=== PATIENT | female | born 1940 | race Caucasian/White ===

== ENCOUNTER 2021-08-05 07:17 | Inpatient (IN) | payer MEDICARE, SELFPAY ==
[2021-08-05] VITALS (7 sets, daily range): BP systolic 147–177; BP diastolic 64–89; PULSE 79–87; RESP 17–24; TEMP 36.9–38.1; O2SAT 94–98; BMI 30.2
--- NOTE | ~2021-08-05 | XR_ITS ---
EXAMINATION: XR CHEST CLINICAL INFORMATION: Stroke COMPARISON: None TECHNIQUE: Frontal view of the chest was obtained. FINDINGS: The heart does not appear enlarged. The thoracic aorta is slightly calcified. Hilar and mediastinal contours are otherwise unremarkable. There is slight elevation of the right hemidiaphragm. The lungs are clear. There is no pleural effusion or pneumothorax. There are degenerative changes of the spine and right shoulder. XR/XR chest 1V IMPRESSION: Slight elevation of the right hemidiaphragm otherwise unremarkable exam.
--- NOTE | ~2021-08-05 | CT_ITS ---
EXAMINATION: CT HEAD WITHOUT CONTRAST (STROKE PROTOCOL) CLINICAL INFORMATION: Stroke protocol. Right-sided weakness and facial droop COMPARISON: None TECHNIQUE: Contiguous axial imaging was performed from the skull base to vertex without intravenous administration of contrast. This CT examination was performed using dose optimization techniques as appropriate, variously including the following: *Automated exposure control *Adjustment of mA and/or kV according to patient size (this includes techniques or standardized protocols for targeted exams where dose is matched to indication/reason for exam; i.e. extremities or head) *Use of iterative reconstruction technique DLP: 648 mGy-cm FINDINGS: There is no intracranial hemorrhage, hematoma, or extra-axial fluid collection. The ventricles are normal in size. There is no hydrocephalus, edema, or mass effect Area of decreased attenuation within the left sylvian region. This is strictly speaking of indeterminate chronicity and needs correlation with baseline studies and acute symptoms. Old appearing right cerebellar PICA infarct is noted. The calvarium appears intact. There is no pneumocephalus or orbital emphysema. The visualized sinuses and middle ears and mastoid air cells show no significant mucosal thickening. Postsurgical changes on the right partially imaged at the level the maxillary sinus. There are no air-fluid levels. CT/CT head for stroke IMPRESSION: Left MCA sylvian region ischemic changes as above. Difficult to exclude acute on chronic ischemia changes. No hemorrhage. This critical result was discussed with Dr. Nevarez at 7:30 AM on 08/05/2021. It was ascertained that the content and urgency of the report was understood at the time of direct communication.
--- NOTE | ~2021-08-05 | XR_ITS ---
EXAMINATION: XR PELVIS CLINICAL INFORMATION: Fall. Evaluate for hip fracture COMPARISON: None TECHNIQUE: AP view of the pelvis. FINDINGS: There is normal symmetry of bilateral hip joints and SI joints. No acute fracture or dislocation seen involving the pelvic bones or the joints. The soft tissues are normal. Moderate degenerative changes L4-L5 and L5/S1 disc levels with moderate spondylosis noted. XR/XR pelvis 1-2V IMPRESSION: No visible acute fracture or dislocation in pelvis.
--- NOTE | 2021-08-05 07:19 | ECG_ITS ---
Test Reason : stroke Blood Pressure : / mmHG Vent. Rate : 078 BPM Atrial Rate : 078 BPM P-R Int : 162 ms QRS Dur : 090 ms QT Int : 400 ms P-R-T Axes : 074 -36 022 degrees QTc Int : 456 ms Normal sinus rhythm Left axis deviation Minimal voltage criteria for LVH, may be normal variant ( [place] product ) Nonspecific ST abnormality Abnormal ECG No previous ECGs available Referred By: Megan Nevarez Electronically Signed By:SANDRA GUNTER
--- NOTE | 2021-08-05 07:24 | ED_ITS ---
HPI - Neuro Symptoms/Deficit General Chief Complaint: Stroke Stated Complaint: stroke alert Time Seen by Provider: 08/05/21 07:18 Source: EMS Mode of arrival: EMS Limitations: altered mental status History of Present Illness HPI Narrative: 81 years old female came in by EMS as a stroke alert. reportedly from EMS/daughter patient lives home alone mostly independent and functional last was seen by her daughter was 2 days ago, daughter checked turned on her mom today found her on the floor for unknown time, patient has been incoherent, with remarkable expressive aphasia and pronounced right facial droop and right-sided body weakness, reportedly patient had 2 strokes history in the past left her with mild right-sided weakness and mild right facial droop but today's symptoms is more severe than her baseline. Patient has never been in our hospital so old record is not available, daughterIs on her way to the hospital but not physically present yet, unknown if patient receiving on anticoagulation therapy are not. Related Data Allergies Allergy/AdvReac Type Severity Reaction Status Date / Time No Known Allergies Allergy Verified 08/05/21 07:18 Review of Systems Review of Systems: Yes Unobtainable due to mental condition [facility] Social History Social History Alcohol intake: never Patient Tobacco Use Status: Never used Tobacco Use of substances other than those prescribed or required for medical reasons: No Advance Directives: Yes Advance Directives Information Provided: Yes Advance Directives on File: No Physical Exam 2 Vital Signs: Vital Signs: Last Vital Signs Temp 100.5 F H 08/05/21 07:29 Pulse 80 08/05/21 08:42 Resp 24 H 08/05/21 08:42 BP 151/71 H 08/05/21 08:42 Pulse Ox 98 08/05/21 08:42 BMI result Body Mass Index 30.2 Vital signs have been reviewed as appeared to be correct. Blood pressure normal. Heart rate normal. Respiration rate normal. Temperature normal. Oxygen saturation normal. Appearance: Alert. . No acute distress. Head: Normal external exam. Normocephalic. Atraumatic. No Grimm signs noted. No raccoon eyes noted Eyes: PERRLA. EOMI. Conjunctiva and sclera normal. Eyelids normal. ENT: TM's Normal. Pharynx normal. Uvula midline. Moist mucous membranes. No trismus noted. No drooling noted. No muffled voice noted. Neck: Normal inspection. Neck supple. FROM. No adenopathy. Thyroid Normal. No meningeal signs. No neck mass noted. CVS: Normal heart rate and rhythm. Heart sound normal. No murmurs noted. Pulses normal throughout. Respiratory: No respiratory distress. Painless inspiration. Breath sounds normal. No wheezes/rales/rhonchi noted. Chest nontender. No accessory muscle usage noted or decreased air movement noted. Abdomen: Soft and nontender. Bowel sounds normal in all 4 quadrants. No distention noted. No organomegaly noted. No visible injury noted. Back: No CVA tenderness. Full range of motion noted. Skin: Skin warm and dry. Normal skin color. Normal skin turgor. No rashes/lesions/lacerations noted. Extremities: No lower extremity edema. Extremities exhibit normal range of motion. Extremities nontender. Neuro: Alert Cranial nerve exam: right facial right-sided weakness, patient with chronic shoulder orthopedic issue cannot raise her left upper extremities. Course Course Course Narrative: Assessment and plan. 1. Stroke patient out of the window for thrombolysis treatment. 2. Non STEMI, case discussed with Dr. Smith recommended to get an echo. 3. Mild rhabdomyolysis mild hydration. 4. Simple UTI will administer ceftriaxone. Admit MDM - Neuro Symptoms/Deficit Lab Data Attestation: I reviewed the patient's lab results. Result diagrams: 08/05/21 08:27 08/05/21 08:27 Labs: Lab Results 08/05/21 08/05/21 08/05/21 Range/Units 07:31 07:32 08:27 WBC 8.2 (4.8-10.8) X10*3/uL RBC 4.49 (4.20-5.50) X10*6/uL Hgb 13.4 (12.0-16.0) g/dl Hct 41.5 (37.0-47.0) % MCV 92.4 (80.0-98.0) fL MCH 29.8 (27.0-33.0) pg MCHC 32.3 (31.0-35.0) g/dl RDW 14.9 (11.0-16.0) % Plt Count 90 L (160-400) X10*3/uL MPV 10.3 (9.4-12.3) fL Immature Gran % (Auto) 0.6 H (0.0-0.4) % Neut % (Auto) 85.4 H (45-73) % Lymph % (Auto) 5.1 L (20-40) % [place] % (Auto) 8.0 (2-11) % Eos % (Auto) 0.7 (0-4) % Baso % (Auto) 0.2 (0-2) % Lymph # (Auto) 0.4 L (1.2-4.9) X10*3/uL [place] # (Auto) 0.7 (0.1-1.2) X10*3/uL Eos # (Auto) 0.1 (0.0-0.4) X10*3/uL Baso # (Auto) 0.0 (0.0-0.2) X10*3/uL Abs Immat Gran (auto) 0.05 H (0.00-0.03) X10*3/uL Absolute Neuts (auto) 7.0 (2.0-8.3) x10*3/uL Absolute Nucleated RBC 0.000 (0.0-0.012) X10*3/uL Nucleated RBC % (auto) 0.0 (0.0-0.2) /100WBC PT (9.9-13.0) SEC Whole Blood PT 16.9 H (11.1-13.5) sec INR (0.9-1.1) Whole Blood INR 1.4 H (0.9-1.1) APTT (24.1-38.0) SEC Sodium (135-145) mmol/L Potassium (3.3-5.1) mmol/L Chloride (96-108) mmol/L Carbon Dioxide (22-29) mmol/L Anion Gap (12-20) BUN (9-16) mg/dL Creatinine (0.5-1.4) mg/dL Estim Creat Clear Calc Estimated GFR POC Glucose 106 (60-115) mg/dL Random Glucose (60-115) mg/dL Lactic Acid (0.5-2.0) mmol/L Calcium (8.4-10.2) mg/dL Total Creatine Kinase (26-140) U/L Troponin I High Sens (<3.5-17.0) ng/L Urine Color Urine Appearance Urine pH (5.0-8.0) Ur Specific [place] (1.005-1.025) Urine Protein (NEG-TRACE) MG/DL Urine Glucose (UA) (NEG) MG/DL Urine Ketones (NEG) MG/DL Urine Blood (NEG) Urine Nitrite (NEG) Ur Leukocyte Esterase (NEG) Urine RBC (0) /HPF Urine WBC (0-4) /HPF Ur Squamous Epith Cells /LPF Urine Bacteria /LPF COVID-19 ([place]) (Negative) COVID-19 Clin Com 08/05/21 08/05/21 08/05/21 Range/Units 08:27 08:27 08:27 WBC (4.8-10.8) X10*3/uL RBC (4.20-5.50) X10*6/uL Hgb (12.0-16.0) g/dl Hct (37.0-47.0) % MCV (80.0-98.0) fL MCH (27.0-33.0) pg MCHC (31.0-35.0) g/dl RDW (11.0-16.0) % Plt Count (160-400) X10*3/uL MPV (9.4-12.3) fL Immature Gran % (Auto) (0.0-0.4) % Neut % (Auto) (45-73) % Lymph % (Auto) (20-40) % [place] % (Auto) (2-11) % Eos % (Auto) (0-4) % Baso % (Auto) (0-2) % Lymph # (Auto) (1.2-4.9) X10*3/uL [place] # (Auto) (0.1-1.2) X10*3/uL Eos # (Auto) (0.0-0.4) X10*3/uL Baso # (Auto) (0.0-0.2) X10*3/uL Abs Immat Gran (auto) (0.00-0.03) X10*3/uL Absolute Neuts (auto) (2.0-8.3) x10*3/uL Absolute Nucleated RBC (0.0-0.012) X10*3/uL Nucleated RBC % (auto) (0.0-0.2) /100WBC PT 16.4 H (9.9-13.0) SEC Whole Blood PT (11.1-13.5) sec INR 1.4 H (0.9-1.1) Whole Blood INR (0.9-1.1) APTT 37.8 (24.1-38.0) SEC Sodium 146 H (135-145) mmol/L Potassium 4.1 (3.3-5.1) mmol/L Chloride 112 H (96-108) mmol/L Carbon Dioxide 20 L (22-29) mmol/L Anion Gap 18 (12-20) BUN 17 H (9-16) mg/dL Creatinine 0.77 (0.5-1.4) mg/dL Estim Creat Clear Calc 54.3 Estimated GFR > 60 POC Glucose (60-115) mg/dL Random Glucose 116 H (60-115) mg/dL Lactic Acid (0.5-2.0) mmol/L Calcium 9.3 (8.4-10.2) mg/dL Total Creatine Kinase 1216 H (26-140) U/L Troponin I High Sens 1176.0 H* (<3.5-17.0) ng/L Urine Color Urine Appearance Urine pH (5.0-8.0) Ur Specific [place] (1.005-1.025) Urine Protein (NEG-TRACE) MG/DL Urine Glucose (UA) (NEG) MG/DL Urine Ketones (NEG) MG/DL Urine Blood (NEG) Urine Nitrite (NEG) Ur Leukocyte Esterase (NEG) Urine RBC (0) /HPF Urine WBC (0-4) /HPF Ur Squamous Epith Cells /LPF Urine Bacteria /LPF COVID-19 ([place]) (Negative) COVID-19 Clin Com 08/05/21 08/05/21 08/05/21 Range/Units 08:27 08:27 09:14 WBC (4.8-10.8) X10*3/uL RBC (4.20-5.50) X10*6/uL Hgb (12.0-16.0) g/dl Hct (37.0-47.0) % MCV (80.0-98.0) fL MCH (27.0-33.0) pg MCHC (31.0-35.0) g/dl RDW (11.0-16.0) % Plt Count (160-400) X10*3/uL MPV (9.4-12.3) fL Immature Gran % (Auto) (0.0-0.4) % Neut % (Auto) (45-73) % Lymph % (Auto) (20-40) % [place] % (Auto) (2-11) % Eos % (Auto) (0-4) % Baso % (Auto) (0-2) % Lymph # (Auto) (1.2-4.9) X10*3/uL [place] # (Auto) (0.1-1.2) X10*3/uL Eos # (Auto) (0.0-0.4) X10*3/uL Baso # (Auto) (0.0-0.2) X10*3/uL Abs Immat Gran (auto) (0.00-0.03) X10*3/uL Absolute Neuts (auto) (2.0-8.3) x10*3/uL Absolute Nucleated RBC (0.0-0.012) X10*3/uL Nucleated RBC % (auto) (0.0-0.2) /100WBC PT (9.9-13.0) SEC Whole Blood PT (11.1-13.5) sec INR (0.9-1.1) Whole Blood INR (0.9-1.1) APTT (24.1-38.0) SEC Sodium (135-145) mmol/L Potassium (3.3-5.1) mmol/L Chloride (96-108) mmol/L Carbon Dioxide (22-29) mmol/L Anion Gap (12-20) BUN (9-16) mg/dL Creatinine (0.5-1.4) mg/dL Estim Creat Clear Calc Estimated GFR POC Glucose (60-115) mg/dL Random Glucose (60-115) mg/dL Lactic Acid 2.3 H* (0.5-2.0) mmol/L Calcium (8.4-10.2) mg/dL Total Creatine Kinase (26-140) U/L Troponin I High Sens (<3.5-17.0) ng/L Urine Color YELLOW Urine Appearance HAZY Urine pH 6.0 (5.0-8.0) Ur Specific [place] >= 1.030 H (1.005-1.025) Urine Protein 2+ H (NEG-TRACE) MG/DL Urine Glucose (UA) NEG (NEG) MG/DL Urine Ketones 15 (NEG) MG/DL Urine Blood 3+ H (NEG) Urine Nitrite POS H (NEG) Ur Leukocyte Esterase NEG (NEG) Urine RBC 0-2 (0) /HPF Urine WBC 15-29 H (0-4) /HPF Ur Squamous Epith Cells TRACE /LPF Urine Bacteria 4+ /LPF COVID-19 ([place]) Negative (Negative) COVID-19 Clin Com See Note Imaging Data Chest x-ray: Attestation: I personally reviewed and interpreted this imaging study as follows: Radiologist's impression: Slight elevation of the right hemidiaphragm otherwise unremarkable exam. ? CT scan - head: Attestation: I personally reviewed and interpreted this imaging study as follows: Radiologist's impression: Left MCA sylvian region ischemic changes as above. Difficult to exclude acute on chronic ischemia changes. No hemorrhage. ? ECG Data Attestation: I personally reviewed and interpreted this ECG as follows: Interpretation: normal sinus rhythm at 70 beats per minutes, left axis deviation, LVH, no ST-T changes. NIH Stroke Scale Internal: Initial- Upon Arrival Level of Consciousness: Alert Level of Consciousness Questions: Answers neither question correctly Level of Consciousness Commands: Performs neither task correctly Best Gaze: Normal Visual: No visual loss Facial Palsy: Minor paralyis Motor Arm (Right): No movement Motor Arm (Left): Drift ( patient was chronic left shoulder pain.) Motor Leg (Right): No movement Motor Leg (Left): No drift Limb Ataxia: Absent Sensory: Normal Best Language: Severe aphasia Dysarthia: Normal Extinction and Inattention: No abnormality Score: 16 Discharge Plan Discharge Clinical Impression: Cerebrovascular accident, Rhabdomyolysis, Non-ST elevation (NSTEMI) myocardial infarction, Acute UTI Patient Disposition: Admitted As Inpatient
[2021-08-05 07:39] LABS: Glucose, Whole Blood 106 mg/dL (60-115)
[2021-08-05 07:41] LABS: Prothrombin Time Whole Bld POC 16.9 sec (11.1-13.5); ~PT, ~INR - Anti Coag Clinic 1.4 (0.9-1.1)
[2021-08-05] MEDS: Acetaminophen Supp 650 MG SUPP.RECT PR (08:12)
[2021-08-05 08:33] LABS: MANUAL DIFF FLAG NO
[2021-08-05 08:35] LABS: Basophils Percent Auto 0.2 % (0-2); Eosinophils Absolute Auto 0.1 X10*3/uL (0.0-0.4); Eosinophils Percent Auto 0.7 % (0-4); Hematocrit 41.5 % (37.0-47.0); Hemoglobin 13.4 g/dl (12.0-16.0); Imm Gran Abs Auto 0.05 X10*3/uL (0.00-0.03); Imm Gran Pct Auto 0.6 % (0.0-0.4); Lymphocytes Absolute Auto 0.4 X10*3/uL (1.2-4.9); Lymphocytes Percent Auto 5.1 % (20-40); Mean Corpuscular HGB Conc 32.3 g/dl (31.0-35.0); Mean Corpuscular Hemoglobin 29.8 pg (27.0-33.0); Mean Corpuscular Volume 92.4 fL (80.0-98.0); Monocytes Absolute Auto 0.7 X10*3/uL (0.1-1.2); Neutrophils Percent Auto 85.4 % (45-73); Red Blood Count 4.49 X10*6/uL (4.20-5.50); Red Cell Distribution Width 14.9 % (11.0-16.0); White Blood Count 8.2 X10*3/uL (4.8-10.8)
[2021-08-05 08:39] LABS: INTERNATIONAL NORM RATIO 1.4 (0.9-1.1); Prothrombin Time 16.4 SEC (9.9-13.0)
[2021-08-05 08:42] LABS: Partial Thromboplastin Time 37.8 SEC (24.1-38.0)
[2021-08-05 08:46] LABS: Lactic Acid 2.3 mmol/L (0.5-2.0)
[2021-08-05 08:48] LABS: COVID-19 Test Negative (Negative); IDNOW Serial# 16C4AD1C
[2021-08-05 08:55] LABS: Mean Platelet Volume 10.3 fL (9.4-12.3); Platelet Count 90 X10*3/uL (160-400)
--- NOTE | 2021-08-05 09:00 | CA_ITS ---
Transthoracic Echocardiogram Patient (Last, First, Middle): Rosa Frank, Gender: Female Date of : 1940 Age: 81 Procedure Date: 08/05/2021 Procedure Type: Transthoracic Echocardiogram Location: ER Height: 157.48 cm Weight: 74.84 kg BSA: 1.76 m2 Heart Rate: bpm BP: 151 / 71 mmHg Music Director: NORA Referring MD: Megan Nevarez MD Symptoms: elevated troponin Study Quality: Fair ECG Rhythm: Sinus Conclusions: - The left ventricular systolic function is normal. The calculated ejection fraction is 64% by biplane method. - There is severe aortic valve stenosis. - There is moderate mitral annular calcification. - The inferior vena cava is dilated and collapses less than 50% with inspiration. Findings Left Ventricle Normal left ventricular cavity size. There is moderately increased left ventricular wall thickness. The left ventricular systolic function is normal. The calculated ejection fraction is 64% by biplane method. There is no evidence of regional wall motion abnormalities. E/E prime ratio is >15, consistent with elevated filling pressures. Evidence suggests grade I (mild) diastolic dysfunction. Right Ventricle Normal right ventricular cavity size and systolic function. Atria The left atrium is mildly dilated. The right atrium is normal in size. Aortic Valve There is moderate calcification of the aortic valve. There is severe aortic valve stenosis. The peak aortic velocity is 4.16 m/s with a calculated peak gradient of 69 mmHg. The mean gradient is 44 mmHg. The aortic valve area is 0.91 cm2. There is no aortic valve regurgitation. Dimensionless index 0.29. Stroke volume index 46ml. Mitral Valve There is moderate mitral annular calcification. There is trace mitral valve regurgitation. There is no mitral valve stenosis. Pulmonic Valve The pulmonic valve was not well visualized. Tricuspid Valve There is trace tricuspid valve regurgitation. The right ventricular systolic pressure is 35 mmHg. Top normal RVSP. Great Vessels The aortic annulus, sinuses of valsalva, and asc aorta are normal in size. Venous The inferior vena cava is dilated and collapses less than 50% with inspiration. Pericardium/Pleural There is no evidence of pericardial effusion. Prior Study Comparison No prior study available for comparison. Measurements 2D Linear Measurements IVSd: 1.36 0.6-0.9/0.6-1.0 cm LVIDd: 4.71 3.9-5.3/4.2-5.9 cm LVIDd Index: 2.68 2.4-3.2/2.2-3.1 cm/m2 LVIDs: 2.81 2.0-3.6 cm LVPWd: 1.29 0.7-1.1 cm LA Diam: 4.20 2.7-3.8/3.0-4.0 cm LAIDs Index: 2.39 1.5-2.3 cm/m2 LV Mass: 305.97 67-162/88-224 g LV Mass Index: 173.85 43-95/49-115 g/m2 LVOT Diam: 2.00 3.0+(-)1.3 cm 2D Systolic Function EF 4C: 58.70 >55% EF 2C: 68.80 >55% EF BiP: 63.80 >55% Mitral Valve MV Pk E: 0.91 MV PK A: 1.33 MV Decel Time: 201.00 E/A: 0.70 E'Lateral: 6.85 E'Medial: 5.33 E/E' Med: 17.00 E/E' Lat: 13.30 PHT: 59.00 MVA PHT: 3.73 Decel [place]: 4.52 Aortic Valve AoV Pk Cipriano: 4.16 AoV Mn Cipriano: 3.21 AoV VTI: 0.90 AoV Pk Grad: 69.00 Aov Mn Grad: 44.00 MAGALI Cont.VTI: 0.91 LVOT LVOT Pk Cipriano: 1.21 LVOT Mn Cipriano: 0.85 LVOT VTI: 0.26 LVOT Pk Grad: 6.00 LVOT Mn Grad: 3.00 LVOT Diam: 2.00 LVOT Area: 3.14 Diastolic Function MV Pk E: 0.91 MV Pk A: 1.33 E/A: 0.70 E'Medial: 5.33 E/E' Med: 17.00 E' Laterial: 6.85 E/E' Lat: 13.30 Right Ventricle TAPSE (mm): 30.00 TVS' Cipriano: 24.10 Tricuspid Valve TR Pk Cipriano: 2.25 TR Pk Grad: 20.00 RA Press: 15.00 RVSP: 35.00 Great Vessels Aorta Sinus of Valsalva: 3.27 2.0-3.[address] [place]: 2.38 1.7-3.4 cm Ao Asc: 3.40 2.1-3.4 cm Updated in Other Vendor System with Status of Final Vlad Smith MD electronically signed on 08/05/2021 11:51:07 AM with status of Final
[2021-08-05] MEDS: 0.9 % Sodium Chloride 1,000 ML 999 ML IV (09:02)
[2021-08-05] MEDS: cefTRIAXone sodium 1 GM in 0.9 % Sodium Chloride 50 ML IV (09:03)
[2021-08-05 09:09] LABS: Stroke Lab Use COMPLETE
[2021-08-05 09:23] LABS: Anion Gap 18 (12-20); Blood Urea Nitrogen 17 mg/dL (9-16); Calcium 9.3 mg/dL (8.4-10.2); Carbon Dioxide 20 mmol/L (22-29); Chloride 112 mmol/L (96-108); Creatinine Clr Calc Pharmacy 54.3; Estimated Glomerular Filt Rate > 60; Glucose Random 116 mg/dL (60-115); Potassium 4.1 mmol/L (3.3-5.1); Sodium 146 mmol/L (135-145)
[2021-08-05 09:29] LABS: Appearance Urine HAZY; Color Urine YELLOW; Glucose Urine UA NEG (NEG); Leukocyte Esterase Urine NEG (NEG); Nitrite Urine POS (NEG); Specific Gravity - Urine >= 1.030 (1.005-1.025); UACC Culture Trigger YES; Urine Blood 3+ (NEG); Urine Ketones 15 MG/DL (NEG); Urine Protein 2+ MG/DL (NEG-TRACE)
[2021-08-05 10:14] LABS: Bacteria Urine 4+ /LPF; RBC Urine 0-2 /HPF (0); Squamous Epithelial Cell Urine TRACE /LPF
[2021-08-05 10:30] LABS: Reflex Lactate? Lactic Acid Added
--- NOTE | 2021-08-05 11:28 | PHA.MEDREC ---
Pharmacy Consult ? Medication Reconciliation Pharmacy has completed the medication reconciliation. Spoke with patient's daugther to confirm medications. Levothyroxine dose has been adjust often, and reports they were recently down to 150 mcg. Metformin is only once a day. Jazmin Sequeira, PharmD
--- NOTE | 2021-08-05 11:54 | P.HPHOSP_ITS ---
History of Present Illness Date of Service: 08/05/21 Chief Complaint: found by family This is an 81 yo F with a PMH of DM, HTN, HLD, Hypothyroidism, Crohn's disease, Prior CVA x 2 who presents to the ED BIBA after her family found her on the ground on the day of admission. The patient currently is unable to provide a history due to her acute CVA, hence history is obtained from the patients [id number] (Meg) who is bedside. Meg reports that she saw her mother in law on Sunday at which point she was in her usual state of health. This AM when she arrival to check in on her (patient lives by herself) she was found to be on the ground. She noted a facial droop at that time and subsequently paramedics were called. Upon arrival to the ED, the patients work up showed a CT scan a L MCA territory infarct of indeterminate chronicity. Last well known time is unclear and hence not a candidate for tPA. Additionally -- the patient was noted to have elevated HS trop-I, a low grade temp and a UA concerning for UTI. She has been given a dose of IVF, IV ceftriaxone, SC tylenol and SC aspirin. She will now be admitted for further work up. In regards to the patients basline functional status -- she ambulates on her own and is capable of some ADLs. She does have some weakness from a prior CVA and a R facial droop. Furthermore, she has begun showing signs of cognitive impairment over the last several months. Review of Systems Review of Systems: unable to obtain due to mental status PMF Social History Alcohol intake: never Patient Tobacco Use Status: Never used Tobacco Use of substances other than those prescribed or required for medical reasons: No Advance Directives: Yes Advance Directives Information Provided: Yes Advance Directives on File: No Meds Allergies Allergy/AdvReac Type Severity Reaction Status Date / Time No Known Allergies Allergy Verified 08/05/21 07:18 Active Medications: Current Medications Acetaminophen (Acetaminophen Supp 650 Mg Supp.Rect) 650 mg SC Q6H PRN PRN Reason: Pain, Mild (Pain Scale 1-3) Aspirin (Aspirin 300 Mg Supp.Rect) 300 mg SC ONCE ONE Stop: 08/05/21 11:46 Dextrose/Sodium Chloride (D51/2ns) 1,000 mls @ 80 mls/hr IVCONT .[id number] RENAE Labetalol HCl (Labetalol Hcl 100 Mg/20 Ml Vial) 10 mg IVPUSH Q4H PRN PRN Reason: BP > 220/120 Ondansetron HCl (Ondansetron Hcl 4 Mg/2 Ml Vial) 4 mg IVPUSH Q8H PRN PRN Reason: Nausea and Vomiting Sodium Chloride (0.9 % Sodium Chloride Flush 3 Ml Syringe) 3 ml IVFLUSH QSHIFT [facility] Home Medications Medication Instructions Recorded Confirmed Last Taken Type acetaminophen 325 mg tablet 650 mg PO BID 08/05/21 08/05/21 08/04/21 History aspirin 81 mg chewable tablet 81 mg PO DAILY 08/05/21 08/05/21 08/04/21 History atorvastatin 80 mg tablet 1 tab PO BEDTIME 08/05/21 08/05/21 08/04/21 History cholestyramine (with sugar) 4 gram 1 packet PO DAILY 08/05/21 08/05/21 08/04/21 History powder for susp in a packet furosemide 20 mg tablet 1 tab PO DAILY 08/05/21 08/05/21 08/04/21 History levetiracetam 500 mg tablet 1 tab PO BID 08/05/21 08/05/21 08/04/21 History levothyroxine 150 mcg tablet 150 mcg PO DAILY 08/05/21 08/05/21 08/04/21 History metformin 500 mg tablet 1 tab PO DAILY 08/05/21 08/05/21 08/04/21 History Physical Exam Vital Signs and Narrative: Vital Signs: Last Vital Signs Temp 99.6 F 08/05/21 11:40 Pulse 80 08/05/21 11:40 Resp 22 H 08/05/21 11:40 BP 158/80 H 08/05/21 11:40 Pulse Ox 98 08/05/21 11:40 BMI result Body Mass Index 30.2 Const: Other: Constitutional - awakens to soft verbal / tactile stimuli; speaking in a whisper Eyes - R eye blindness; EOMI in the L eye, pupils PERRL Cardiovascular - S1S2; +systolic murmur Respiratory - diminished sounds at the bases; no respiratory distress Gastrointestinal - NT / ND; +BS; No rebound or guarding; old laparotomy scar - No CVA tenderness Musculoskeletal - Normal inspection, normal ROM Skin - Warm/Dry Neurological - somnolent but arousable, not able to follow commands, R facial droop; speech decibels are decreased -- difficult to ascertain if she has slurred speech Results Labs CBC and Chem 7: 08/05/21 08:27 08/05/21 08:27 Labs: Laboratory Results - last 24 hr 08/05/21 08/05/21 08/05/21 07:31 07:32 08:27 MCV 92.4 MCH 29.8 MCHC 32.3 RDW 14.9 Plt Count 90 L MPV 10.3 Immature Gran % (Auto) 0.6 H Neut % (Auto) 85.4 H Lymph % (Auto) 5.1 L [place] % (Auto) 8.0 Eos % (Auto) 0.7 Baso % (Auto) 0.2 Lymph # (Auto) 0.4 L [place] # (Auto) 0.7 Eos # (Auto) 0.1 Baso # (Auto) 0.0 Abs Immat Gran (auto) 0.05 H Absolute Neuts (auto) 7.0 Absolute Nucleated RBC 0.000 Nucleated RBC % (auto) 0.0 PT Whole Blood PT 16.9 H INR Whole Blood INR 1.4 H APTT Anion Gap Estim Creat Clear Calc Estimated GFR POC Glucose 106 Random Glucose Lactic Acid Calcium Total Creatine Kinase Urine Color Urine Appearance Urine pH Ur Specific [place] Urine Protein Urine Glucose (UA) Urine Ketones Urine Blood Urine Nitrite Ur Leukocyte Esterase Urine RBC Urine WBC Ur Squamous Epith Cells Urine Bacteria COVID-19 ([place]) COVID-19 Clin Com 08/05/21 08/05/21 08/05/21 08:27 08:27 08:27 MCV MCH MCHC RDW Plt Count MPV Immature Gran % (Auto) Neut % (Auto) Lymph % (Auto) [place] % (Auto) Eos % (Auto) Baso % (Auto) Lymph # (Auto) [place] # (Auto) Eos # (Auto) Baso # (Auto) Abs Immat Gran (auto) Absolute Neuts (auto) Absolute Nucleated RBC Nucleated RBC % (auto) PT 16.4 H Whole Blood PT INR 1.4 H Whole Blood INR APTT 37.8 Anion Gap 18 Estim Creat Clear Calc 54.3 Estimated GFR > 60 POC Glucose Random Glucose 116 H Lactic Acid Calcium 9.3 Total Creatine Kinase 1216 H Urine Color Urine Appearance Urine pH Ur Specific [place] Urine Protein Urine Glucose (UA) Urine Ketones Urine Blood Urine Nitrite Ur Leukocyte Esterase Urine RBC Urine WBC Ur Squamous Epith Cells Urine Bacteria COVID-19 ([place]) Negative COVID-19 Clin Com See Note 08/05/21 08/05/21 08:27 09:14 MCV MCH MCHC RDW Plt Count MPV Immature Gran % (Auto) Neut % (Auto) Lymph % (Auto) [place] % (Auto) Eos % (Auto) Baso % (Auto) Lymph # (Auto) [place] # (Auto) Eos # (Auto) Baso # (Auto) Abs Immat Gran (auto) Absolute Neuts (auto) Absolute Nucleated RBC Nucleated RBC % (auto) PT Whole Blood PT INR Whole Blood INR APTT Anion Gap Estim Creat Clear Calc Estimated GFR POC Glucose Random Glucose Lactic Acid 2.3 H* Calcium Total Creatine Kinase Urine Color YELLOW Urine Appearance HAZY Urine pH 6.0 Ur Specific [place] >= 1.030 H Urine Protein 2+ H Urine Glucose (UA) NEG Urine Ketones 15 Urine Blood 3+ H Urine Nitrite POS H Ur Leukocyte Esterase NEG Urine RBC 0-2 Urine WBC 15-29 H Ur Squamous Epith Cells TRACE Urine Bacteria 4+ COVID-19 ([place]) COVID-19 Clin Com Imaging Radiologist's Impressions: Impressions Head CT 08/05/21 07:25 IMPRESSION: Left MCA sylvian region ischemic changes as above. Difficult to exclude acute on chronic ischemia changes. No hemorrhage. This critical result was discussed with Dr. Nevarez at 7:30 AM on 08/05/2021. It was ascertained that the content and urgency of the report was understood at the time of direct communication. Chest X-Ray 08/05/21 08:35 IMPRESSION: Slight elevation of the right hemidiaphragm otherwise unremarkable exam. Assessment and Plan (1) Cerebrovascular accident: Status: Acute Plan This is an 81 yo F with a PMH of DM, HTN, HLD, Hypothyroidism, Crohn's disease, Prior CVA x 2 who presents to the ED BIBA after her family found her on the gr ound on the day of admission. Her work up and presentation are consistent with acute/subacute CVA. She will be admitted for further work up. 1. Acute vs Subacute CVA L MCA territory infarct seen on CT imaging rectal asa speech / swallow, PT/OT NPO for now neurology consult 2. Elevated Trop-I in the NSTEMI range but flat Echo done -- no [facility] cardiology consult 3. Possible UTI UA+ + low grade temp cover with IV rocephin 4. HypoNa due to decreased oral intake treat with D5-1/2 @ 80 cc/hr monitor chemistry 5. DM hold metformin POC, hold off on insulin coverage unless significantly elevated 6. hypothyroidism synthorid when able, otherwise may need to use IV 7. HTN allow for permissive HTN treat with IV labetalol for BP > 220/120 8. Seiuzre disorder use IV keppra, change to PO when able 9. Chronic Crohn's monitor 10. Thrombocytopenia no prior values to compare to DNR/DNI -- discussed with his patients daughter in law as well as Erik Santiago (grand son and HCP @ [phone]) DVT pptx, likely subcut heparin (platelets low -- will d/w Neurology) In light of her acute/subacute CVA, possible NSTEMI, UTI -- I anticipate a medically necessary, 2 midnight inpatient admission for treatment and monitoring response. This cannot be completed in a less acute setting. Quality Stroke Does the patient have a stroke diagnosis?: Yes Reason for No Anti-thrombotic by Day Two: Drug treatment not indicated VTE Prior VTE?: No VTE Risk Level:: Medical - moderate - high VTE Device Contraindication: N/A - Device Ordered VTE Drug Contraindication: N/A - Med Ordered
[2021-08-05 11:58] LABS: ~Lactic Acid-LAB USE ONLY 2.1 mmol/L (0.5-2.0)
[2021-08-05 12:04] LABS: Troponin-I High Sensitivity 1132.6 ng/L (<3.5-17.0)
[2021-08-05 12:14] LABS: Cholesterol 95 mg/dL; HDL Cholesterol 43 mg/dL; LDL Cholesterol Calculated 32 mg/dl; Triglycerides 104 mg/dL
[2021-08-05] MEDS: Aspirin 300 MG SUPP.RECT PR (12:40)
--- NOTE | 2021-08-05 12:47 | PM.CNCAR ---
History of Present Illness History of Present Illness Date of Service: 08/05/21 Chief complaint: Stroke Narrative: This is a cardiology consultation regarding elevated troponins. Patient has multiple medical comorbidities including diabetes, hypertension, prior strokes. It seems that her family found on the floor day of hospitalization. She has been diagnosed to have acute stroke. In this context, troponins were checked and they were high and hence we have been asked to see her. Patient herself is nonverbal not able to say anything at all. Daughter in-law is the bedside and she states that she is not aware of any major cardiac issues in the past apart from the previous strokes. No known coronary disease myocardial infarction. Patient has limited mobility at baseline and also cannot read or write recently suspected to be from the strokes. She walks with a walker. Has not complained of any chest pains recently. Review of Systems Review of Systems: Unable to obtain review of systems due to patient's stroke. [facility] Family History Pertinent family history: Patient's mother had a stroke. Social History Social History Alcohol intake: never Patient Tobacco Use Status: Never used Tobacco Use of substances other than those prescribed or required for medical reasons: No Advance Directives: Yes Advance Directives Information Provided: Yes Advance Directives on File: No Meds Allergies Allergy/AdvReac Type Severity Reaction Status Date / Time No Known Allergies Allergy Verified 08/05/21 07:18 Active Medications: Current Medications Acetaminophen (Acetaminophen Supp 650 Mg Supp.Rect) 650 mg MD Q6H PRN PRN Reason: Pain, Mild (Pain Scale 1-3) Dextrose/Sodium Chloride (D51/2ns) 1,000 mls @ 80 mls/hr IVCONT .[id number] [facility] Labetalol HCl (Labetalol Hcl 100 Mg/20 Ml Vial) 10 mg IVPUSH Q4H PRN PRN Reason: BP > 220/120 Ondansetron HCl (Ondansetron Hcl 4 Mg/2 Ml Vial) 4 mg IVPUSH Q8H PRN PRN Reason: Nausea and Vomiting Sodium Chloride (0.9 % Sodium Chloride Flush 3 Ml Syringe) 3 ml IVFLUSH QSHIFT [facility] Home Medications Medication Instructions Recorded Confirmed Last Taken Type acetaminophen 325 mg tablet 650 mg PO BID 08/05/21 08/05/21 08/04/21 History aspirin 81 mg chewable tablet 81 mg PO DAILY 08/05/21 08/05/21 08/04/21 History atorvastatin 80 mg tablet 1 tab PO BEDTIME 08/05/21 08/05/21 08/04/21 History cholestyramine (with sugar) 4 gram 1 packet PO DAILY 08/05/21 08/05/21 08/04/21 History powder for susp in a packet furosemide 20 mg tablet 1 tab PO DAILY 08/05/21 08/05/21 08/04/21 History levetiracetam 500 mg tablet 1 tab PO BID 08/05/21 08/05/21 08/04/21 History levothyroxine 150 mcg tablet 150 mcg PO DAILY 08/05/21 08/05/21 08/04/21 History metformin 500 mg tablet 1 tab PO DAILY 08/05/21 08/05/21 08/04/21 History Physical Exam Vital Signs: Vital Signs: Last Vital Signs Temp 99.6 F 08/05/21 11:40 Pulse 80 08/05/21 11:40 Resp 22 H 08/05/21 11:40 BP 158/80 H 08/05/21 11:40 Pulse Ox 98 08/05/21 11:40 BMI result Body Mass Index 30.2 Const: General: comfortable HENMT: Other: Unremarkable Neck: Neck: Yes normal visual inspection Chest: Chest palpation & inspection: normal inspection of the chest Resp: Auscultation: clear to auscultation bilaterally Cardio: Palpation: normal PMI Heart sounds: S1 normal heart sound present, S2 normal heart sound present, no gallops, Murmur heart sound present systolic early and III/ and no rubs GI: Inspection: Yes normal to inspection Palpation (GI): Soft to palpation Back/Spine/Pelvis: Other: unremarkable Skin: General skin exam: no rashes or lesions noted Neuro: Cognition (Neuro): abnormal cognition Extrem: General: Yes normal to inspection Psych: Mental Status: other (Unable to assess due to stroke.) Objective Labs and Meds Result diagrams: 08/05/21 08:27 08/05/21 08:27 Lab results: Laboratory Results - last 24 hr 08/05/21 08/05/21 08/05/21 07:31 07:32 08:27 WBC 8.2 RBC 4.49 Hgb 13.4 Hct 41.5 MCV 92.4 MCH 29.8 MCHC 32.3 RDW 14.9 Plt Count 90 L MPV 10.3 Immature Gran % (Auto) 0.6 H Neut % (Auto) 85.4 H Lymph % (Auto) 5.1 L [place] % (Auto) 8.0 Eos % (Auto) 0.7 Baso % (Auto) 0.2 Lymph # (Auto) 0.4 L [place] # (Auto) 0.7 Eos # (Auto) 0.1 Baso # (Auto) 0.0 Abs Immat Gran (auto) 0.05 H Absolute Neuts (auto) 7.0 Absolute Nucleated RBC 0.000 Nucleated RBC % (auto) 0.0 PT Whole Blood PT 16.9 H INR Whole Blood INR 1.4 H APTT Sodium Potassium Chloride Carbon Dioxide Anion Gap BUN Creatinine Estim Creat Clear Calc Estimated GFR POC Glucose 106 Random Glucose Lactic Acid Lactic Acid F/U @ 2Hr Calcium Total Creatine Kinase Troponin I High Sens Triglycerides Cholesterol LDL Cholesterol, Calc HDL Cholesterol Urine Color Urine Appearance Urine pH Ur Specific [place] Urine Protein Urine Glucose (UA) Urine Ketones Urine Blood Urine Nitrite Ur Leukocyte Esterase Urine RBC Urine WBC Ur Squamous Epith Cells Urine Bacteria COVID-19 ([place]) COVID-19 Clin Com 08/05/21 08/05/21 08/05/21 08:27 08:27 08:27 WBC RBC Hgb Hct MCV MCH MCHC RDW Plt Count MPV Immature Gran % (Auto) Neut % (Auto) Lymph % (Auto) [place] % (Auto) Eos % (Auto) Baso % (Auto) Lymph # (Auto) [place] # (Auto) Eos # (Auto) Baso # (Auto) Abs Immat Gran (auto) Absolute Neuts (auto) Absolute Nucleated RBC Nucleated RBC % (auto) PT 16.4 H Whole Blood PT INR 1.4 H Whole Blood INR APTT 37.8 Sodium 146 H Potassium 4.1 Chloride 112 H Carbon Dioxide 20 L Anion Gap 18 BUN 17 H Creatinine 0.77 Estim Creat Clear Calc 54.3 Estimated GFR > 60 POC Glucose Random Glucose 116 H Lactic Acid Lactic Acid F/U @ 2Hr Calcium 9.3 Total Creatine Kinase 1216 H Troponin I High Sens 1176.0 H* Triglycerides 104 Cholesterol 95 LDL Cholesterol, Calc 32 HDL Cholesterol 43 Urine Color Urine Appearance Urine pH Ur Specific [place] Urine Protein Urine Glucose (UA) Urine Ketones Urine Blood Urine Nitrite Ur Leukocyte Esterase Urine RBC Urine WBC Ur Squamous Epith Cells Urine Bacteria COVID-19 ([place]) COVID-19 Clin Com 08/05/21 08/05/21 08/05/21 08:27 08:27 09:14 WBC RBC Hgb Hct MCV MCH MCHC RDW Plt Count MPV Immature Gran % (Auto) Neut % (Auto) Lymph % (Auto) [place] % (Auto) Eos % (Auto) Baso % (Auto) Lymph # (Auto) [place] # (Auto) Eos # (Auto) Baso # (Auto) Abs Immat Gran (auto) Absolute Neuts (auto) Absolute Nucleated RBC Nucleated RBC % (auto) PT Whole Blood PT INR Whole Blood INR APTT Sodium Potassium Chloride Carbon Dioxide Anion Gap BUN Creatinine Estim Creat Clear Calc Estimated GFR POC Glucose Random Glucose Lactic Acid 2.3 H* Lactic Acid F/U @ 2Hr Calcium Total Creatine Kinase Troponin I High Sens Triglycerides Cholesterol LDL Cholesterol, Calc HDL Cholesterol Urine Color YELLOW Urine Appearance HAZY Urine pH 6.0 Ur Specific [place] >= 1.030 H Urine Protein 2+ H Urine Glucose (UA) NEG Urine Ketones 15 Urine Blood 3+ H Urine Nitrite POS H Ur Leukocyte Esterase NEG Urine RBC 0-2 Urine WBC 15-29 H Ur Squamous Epith Cells TRACE Urine Bacteria 4+ COVID-19 ([place]) Negative COVID-19 [employer] [facility] Com See Note 08/05/21 08/05/21 11:33 11:33 WBC RBC Hgb Hct MCV MCH MCHC RDW Plt Count MPV Immature Gran % (Auto) Neut % (Auto) Lymph % (Auto) [place] % (Auto) Eos % (Auto) Baso % (Auto) Lymph # (Auto) [place] # (Auto) Eos # (Auto) Baso # (Auto) Abs Immat Gran (auto) Absolute Neuts (auto) Absolute Nucleated RBC Nucleated RBC % (auto) PT Whole Blood PT INR Whole Blood INR APTT Sodium Potassium Chloride Carbon Dioxide Anion Gap BUN Creatinine Estim Creat Clear Calc Estimated GFR POC Glucose Random Glucose Lactic Acid Lactic Acid F/U @ 2Hr 2.1 H* Calcium Total Creatine Kinase Troponin I High Sens 1132.6 H* Triglycerides Cholesterol LDL Cholesterol, Calc HDL Cholesterol Urine Color Urine Appearance Urine pH Ur Specific [place] Urine Protein Urine Glucose (UA) Urine Ketones Urine Blood Urine Nitrite Ur Leukocyte Esterase Urine RBC Urine WBC Ur Squamous Epith Cells Urine Bacteria COVID-19 ([place]) COVID-19 Clin Com ECG Interpretation: EKG with sinus rhythm at 78/Min; leftward axis/LVH; nonspecific ST-T changes. Imaging Radiologist's impression: Impressions Head CT 08/05/21 07:25 IMPRESSION: Left MCA sylvian region ischemic changes as above. Difficult to exclude acute on chronic ischemia changes. No hemorrhage. This critical result was discussed with Dr. Nvearez at 7:30 AM on 08/05/2021. It was ascertained that the content and urgency of the report was understood at the time of direct communication. Chest X-Ray 08/05/21 08:35 IMPRESSION: Slight elevation of the right hemidiaphragm otherwise unremarkable exam. Assessment and Plan (1) Non-ST elevation (NSTEMI) myocardial infarction: Status: Acute (2) Rhabdomyolysis: Status: Acute (3) Cerebrovascular accident: Status: Acute (4) Non-rheumatic aortic stenosis: Status: Acute Plan She has elevated troponins as well as elevated CK. This could be some combination of type 2 NSTEMI as well as rhabdomyolysis. On echocardiogram, she also has severe aortic stenosis. Discussed about these findings with the patient's [id number] at the bedside. She states that she would rather not have anything too aggressive and would lean towards comfort measures only. Hence in this setting, no definitive cardiac care. Can continue aspirin statins. If Neurology agrees, then IV heparin for 48 hours. If transitioning to comfort only, then those can be stopped as well. She is not a candidate for any cardiac catheterization or advanced therapies like TAVR. Procedures Date of Service Date of Service: 08/05/21
--- NOTE | 2021-08-05 12:59 | MHC.SL.SWA ---
Speech Pathologist Impression: Risk of Aspiration Other Risk of Aspiration Due to: Lethargy secondary to suspected CVA Dysphasia Diet Status: Liquid Consistency and Strategies for Safe Swallow: Liquid Intake Recommendation: NPO Liquid Intake Strategies: NPO Solid Food Consistency: Dietary Recommendations: NPO Additional Modifications to Solid Foods: Oral Medication Intake: NPO Please contact the pharmacy regarding appropriate crushable or liquid drug formulations that are available whenever modified delivery is recommended. Compensatory Strategies and Precautions to be Taken for Safe Swallow: Supervision While Eating and Drinking for Safe Swallow: Foods to Avoid: Swallowing Recommended Treatments: Recommendation for Speech: Further Testing Needed Comment: re-attempt as pt condition improves Frequency/Duration: while in the hospital, and after a IRIS increase, may trial Po as tolerated. Date Range for Service Req: while a patient Timeline to reassess: while inpatient Clinic Licensed Practical Nurse Clinican/Clinical Fellow: No Supervisory Statement: I have reviewed and agree with the student/clinical fellow's documentation: N/A Speech Language Pathologist: Nancy Pfeiffer M.A., CCC-ERGONOMIST
[2021-08-05] MEDS: Dextrose 5 % and 0.45 % NaCl 1,000 ML 80 ML IVCONT (13:02)
[2021-08-05 13:35] LABS: Reflex Lactate? 2 Y
[2021-08-05] MEDS: levETIRAcetam in NaCl (iso-os) 500 MG/100 ML PIGGYBACK 400 MG IV (14:04)
[2021-08-05 14:16] LABS: ~Lactic Acid-LAB USE ONLY 1.7 mmol/L (0.5-2.0)
--- NOTE | 2021-08-05 17:58 | MHC.STROKE ---
EMS PRE-NOTIFIED STROKE ALERT AT 0709 PATIENT ARRIVED AT 0717. EXAMINED BY DR STEPHEN AND DIRECT TO CT. I SPOKE WITH THE DIL AND SHE LAST SAW THE PATIENT ON 08/02/21 AT 1730, DISCOVERED THE PATIENT ON THE FLOOR TODAY 08/05/21 AT 0630 AND CALL 911. OUT OF THE WINDOW FOR TPA-ALTEPLASE. CO ASA GIVEN. NPO FAILED SWALLOW SCREEN. I PROVIDED STROKE EDUCATION AND SUPPORT. SHE MENTIONED THAT HER MIL WOULD NOT WANT ANY EXTRAORDINARY MEASURES, IVF ARE RUNNING AND PATIENT IS MINIMALLY RESPONSIVE. DR LOCKE CAME TO THE BEDSIDE TO SPEAK WITH THE DIL I WAS FINISHING. I WILL CONTINUE TO FOLLOW.
--- NOTE | 2021-08-05 18:37 | PC.NURSE ---
Pt is Drowsy but makes eye contact, L pupil 3mm, round and brisk reaction, R pupil is 2mm, cloudy but round and non reactive, per daughter in law at bedside, pt is blind in R eye. Pt is oriented to name at this time, inc of urine, pericare along with bed bath and linen change completed, excoriation noted to area between stomach and pubis, multiple open areas to buttocks in different stages, mepilex applied to bottom. Abrasions noted to R elbow with scabbing, bruising to LUE and abd all in different stages of healing. Pt was found on floor by JANE Sunday AM, last known well time was Sunday. Stroke team and MD spoke to pt's family, probable comfort care tomorrow. Call amaya within reach, pure wick in place. Will continue to monitor.
[2021-08-05 19:02] LABS: Glucose, Whole Blood 141 mg/dL (60-115)
[2021-08-06 00:45] LABS: Glucose, Whole Blood 153 mg/dL (60-115)
[2021-08-06] MEDS: Dextrose 5 % and 0.45 % NaCl 1,000 ML 80 ML IVCONT (01:34)
[2021-08-06] MEDS: levETIRAcetam in NaCl (iso-os) 500 MG/100 ML PIGGYBACK 400 MG IV (02:36)
[2021-08-06 03:38] VITALS: BP 154/78; PULSE 77; RESP 17; TEMP 36.6; O2SAT 98
[2021-08-06 07:00] VITALS: BP 147/65; PULSE 81; RESP 28; TEMP 36; O2SAT 97
[2021-08-06 07:37] LABS: Glucose, Whole Blood 146 mg/dL (60-115)
[2021-08-06] MEDS: cefTRIAXone sodium 1 GM in 0.9 % Sodium Chloride 50 ML IV (10:13)
--- NOTE | 2021-08-06 10:47 | P.PNIM_ITS ---
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 Physical Exam Vital Signs: Vital Signs: Last Vital Signs Temp 96.8 F 08/06/21 07:00 Pulse 81 08/06/21 07:00 Resp 28 H 08/06/21 07:00 BP 147/65 H 08/06/21 07:00 Pulse Ox 97 08/06/21 07:00 BMI result Body Mass Index 30.2 somnolent lung sounds are clear to auscultation heart regular rate rhythm, clear S1, S2 positive bowel sounds, abdomen is soft, nontender neuro patient is somnolent Objective Data Active Medications Acetaminophen (Acetaminophen Supp 650 Mg Supp.Rect) 650 mg [place] Q6H PRN PRN Reason: Pain, Mild (Pain Scale 1-3) Labetalol HCl (Labetalol Hcl 100 Mg/20 Ml Vial) 10 mg IVPUSH Q4H PRN PRN Reason: BP > 220/120 Lorazepam (Lorazepam 2 Mg/Ml Vial) 1 mg IVPUSH Q4H PRN PRN Reason: anxiety Morphine Sulfate (Morphine Sulfate 2 Mg/Ml Cartridge) 2 mg IM Q4H PRN PRN Reason: Discomfort/Shortness of breath Ondansetron HCl (Ondansetron Hcl 4 Mg/2 Ml Vial) 4 mg IVPUSH Q8H PRN PRN Reason: Nausea and Vomiting Ondansetron HCl (Ondansetron Hcl 4 Mg/2 Ml Vial) 4 mg IVPUSH Q8H PRN PRN Reason: Nausea and Vomiting Scopolamine (Scopolamine 1.5 Mg Patch.Td.3) 1.5 mg TRANSDERMA Q72H [facility] Sodium Chloride (0.9 % Sodium Chloride Flush 3 Ml Syringe) 3 ml IVFLUSH QSHIFT [facility] Last Admin: 08/06/21 10:06 Dose: Not Given Documented by: DAMI Non-Admin Reason: IV Running Labs CBC & Chem 7: 08/05/21 08:27 08/05/21 08:27 Labs: Laboratory Results - last 24 hr 08/05/21 08/05/21 08/05/21 08:27 11:33 13:58 POC Glucose Lactic Acid F/U @ 2Hr 2.1 H* Lactic Acid F/U @ 4Hr 1.7 Triglycerides 104 Cholesterol 95 LDL Cholesterol, Calc 32 HDL Cholesterol 43 08/05/21 08/06/21 08/06/21 18:59 00:39 07:20 POC Glucose 141 H 153 H 146 H Lactic Acid F/U @ 2Hr Lactic Acid F/U @ 4Hr Triglycerides Cholesterol LDL Cholesterol, Calc HDL Cholesterol Microbiology Microbiology Results: Microbiology 08/05/21 08:27 Blood Culture - Preliminary Blood - Venous No growth after 24 hours. 08/05/21 Unknown Urine Culture - Preliminary Urine Catheterized - Straight Catheter Gram negative kia 08/05/21 08:50 Blood Culture - Final Blood - Venous 08/05/21 08:42 Blood Culture - Final Blood - Venous Assessment and Plan (1) Cerebrovascular accident: Status: Acute Plan This is an 81 yo F with a PMH of DM, HTN, HLD, Hypothyroidism, Crohn's disease, Prior CVA x 2 who presents to the ED BIBA after her family found her on the ground on the day of admission. Her work up and presentation are consistent with acute/subacute CVA. She will be admitted for further work up. Due to the seriousness of the patient's diagnosis and poor prognosis her family decided to make her comfort measures only therefore all noninvasive and invasive treatments will be stopped. As needed morphine, lorazepam and Zofran are available along with scopolamine. The patient is resting in bed, somnolent surrounded by her family. 1. Acute vs Subacute CVA L MCA territory infarct seen on CT imaging rectal asa speech / swallow, PT/OT NPO for now neurology consult 2. Elevated Trop-I in the NSTEMI range but flat Echo done -- no [facility] cardiology consult 3. Possible UTI UA+ + low grade temp cover with IV rocephin 4. HypoNa due to decreased oral intake treat with D5-1/2 @ 80 cc/hr monitor chemistry 5. DM hold metformin POC, hold off on insulin coverage unless significantly elevated 6. hypothyroidism synthorid when able, otherwise may need to use IV 7. HTN allow for permissive HTN treat with IV labetalol for BP > 220/120 8. Seiuzre disorder use IV keppra, change to PO when able 9. Chronic Crohn's monitor 10. Thrombocytopenia no prior values to compare to DNR/DNI -- discussed with his patients daughter in law as well as Erik Santiago (grand son and HCP @ [phone]) DVT pptx, likely subcut heparin (platelets low -- will d/w Neurology) Attending Dr. Heredia In light of her acute/subacute CVA, possible NSTEMI, UTI -- I anticipate a medically necessary, 2 midnight inpatient admission for treatment and monitoring response. This cannot be completed in a less acute setting. Quality Stroke Does the patient have a stroke diagnosis?: Yes Reason for No Anti-thrombotic by Day Two: Drug treatment not indicated VTE Prior VTE?: No VTE Risk Level:: Medical - moderate - high VTE Device Contraindication: N/A - Device Ordered VTE Drug Contraindication: N/A - Med Ordered
[2021-08-06] MEDS: Morphine Sulfate 2 MG/ML CARTRIDGE IM ×2 (11:44→16:34)
[2021-08-06] MEDS: Scopolamine 1.5 MG PATCH.TD.3 TRANSDERMA (11:44)
[2021-08-06 19:00] VITALS: BP 172/77; PULSE 80; RESP 19; TEMP 36.4; O2SAT 96
[2021-08-07] MEDS: 0.9 % Sodium Chloride Flush 3 ML SYRINGE IVFLUSH ×3 (01:59→16:29)
[2021-08-07 07:48] VITALS: BP 163/77; PULSE 93; RESP 24; TEMP 37; O2SAT 96
[2021-08-07] MEDS: Morphine Sulfate 2 MG/ML CARTRIDGE IM (08:18)
--- NOTE | 2021-08-07 09:56 | HO.PM.IMPN ---
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 Physical Exam Vital Signs: Vital Signs: Last Vital Signs Temp 98.6 F 08/07/21 07:48 Pulse 93 08/07/21 07:48 Resp 24 H 08/07/21 07:48 BP 163/77 H 08/07/21 07:48 Pulse Ox 96 08/07/21 07:48 BMI result Body Mass Index 30.2 Somnolent clear lungs Objective Data Active Medications Acetaminophen (Acetaminophen Supp 650 Mg Supp.Rect) 650 mg [place] Q6H PRN PRN Reason: Pain, Mild (Pain Scale 1-3) Labetalol HCl (Labetalol Hcl 100 Mg/20 Ml Vial) 10 mg IVPUSH Q4H PRN PRN Reason: BP > 220/120 Lorazepam (Lorazepam 2 Mg/Ml Vial) 1 mg IVPUSH Q4H PRN PRN Reason: anxiety Morphine Sulfate (Morphine Sulfate 2 Mg/Ml Cartridge) 2 mg IM Q4H PRN PRN Reason: Discomfort/Shortness of breath Last Admin: 08/07/21 08:18 Dose: 2 mg Documented by: ANA Ondansetron HCl (Ondansetron Hcl 4 Mg/2 Ml Vial) 4 mg IVPUSH Q8H PRN PRN Reason: Nausea and Vomiting Ondansetron HCl (Ondansetron Hcl 4 Mg/2 Ml Vial) 4 mg IVPUSH Q8H PRN PRN Reason: Nausea and Vomiting Scopolamine (Scopolamine 1.5 Mg Patch.Td.3) 1.5 mg TRANSDERMA Q72H [facility] Last Admin: 08/06/21 11:44 Dose: 1.5 mg Documented by: DAMI Sodium Chloride (0.9 % Sodium Chloride Flush 3 Ml Syringe) 3 ml IVFLUSH QSHIFT [facility] Last Admin: 08/07/21 08:24 Dose: 3 ml Documented by: ANA Labs CBC & Chem 7: 08/05/21 08:27 08/05/21 08:27 Microbiology Microbiology Results: Microbiology 08/05/21 Unknown Urine Culture - Final Urine Catheterized - Straight Catheter Escherichia coli 08/05/21 08:50 Blood Culture - Preliminary Blood - Venous No growth after 24 hours. 08/05/21 08:27 Blood Culture - Preliminary Blood - Venous No growth after 24 hours. Assessment and Plan (1) Cerebrovascular accident: Status: Acute Plan This is an 81 yo F with a PMH of DM, HTN, HLD, Hypothyroidism, Crohn's disease, Prior CVA x 2 who presents to the ED BIBA after her family found her on the ground on the day of admission. Her work up and presentation are consistent with acute/subacute CVA. She will be admitted for further work up. 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 As needed morphine, lorazepam and Zofran are available along with scopolamine. The patient is resting in bed, somnolent surrounded by her family. Increase morphine frequency Acute vs Subacute CVA L MCA territory infarct seen on CT imaging rectal asa speech / swallow, PT/OT NPO for now neurology consult Elevated Trop-I in the NSTEMI range but flat Echo done -- no [facility] cardiology consult Possible UTI UA+ + low grade temp cover with IV rocephin HypoNa due to decreased oral intake treat with D5-1/2 @ 80 cc/hr monitor chemistry DM hold metformin POC, hold off on insulin coverage unless significantly elevated hypothyroidism synthorid when able, otherwise may need to use IV HTN allow for permissive HTN treat with IV labetalol for BP > 220/120 Seiuzre disorder use IV keppra, change to PO when able Chronic Crohn's monitor Thrombocytopenia no prior values to compare to DNR/DNI -- discussed with his patients daughter in law as well as Erik Santiago (grand son and HCP @ [phone]) DVT pptx, likely subcut heparin (platelets low -- will d/w Neurology) Attending Dr. Heredia In light of her acute/subacute CVA, possible NSTEMI, UTI -- I anticipate a medically necessary, 2 midnight inpatient admission for treatment and monitoring response. This cannot be completed in a less acute setting. Quality Stroke Does the patient have a stroke diagnosis?: Yes Reason for No Anti-thrombotic by Day Two: Drug treatment not indicated VTE Prior VTE?: No VTE Risk Level:: Medical - moderate - high VTE Device Contraindication: N/A - Device Ordered VTE Drug Contraindication: N/A - Med Ordered
[2021-08-07] MEDS: LORazepam 2 MG/ML VIAL 1 MG IVPUSH (11:01)
[2021-08-07] MEDS: Morphine Sulfate 2 MG/ML CARTRIDGE IVPUSH ×8 (11:51→23:49)
--- NOTE | 2021-08-07 15:02 | PC.NURSE ---
1400 TRIM MOUNTER morphine IV given for comfort. Resp 24. Family at bedside.
--- NOTE | 2021-08-07 16:30 | MHC.CM.PN ---
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 PER HOSPITALIST, PT NOT LIKELY TO DISCHARGE. PTS DAUGHTER, AT BEDSIDE, REPORTS SHE DOES NOT WANT PT MOVED. MEDICARE RIGHTS WERE DELIVERED AND SIGNED BY HER.
[2021-08-07 23:42] VITALS: RESP 14
[2021-08-08] VITALS (10 sets, daily range): RESP 8–22; BMI 30.2
[2021-08-08] MEDS: Morphine Sulfate 2 MG/ML CARTRIDGE IVPUSH ×4 (06:46→11:56)
[2021-08-08] MEDS: 0.9 % Sodium Chloride Flush 3 ML SYRINGE IVFLUSH (08:17)
[2021-08-08] MEDS: LORazepam 2 MG/ML VIAL 1 MG IVPUSH ×2 (08:20→14:49)
--- NOTE | 2021-08-08 10:00 | HO.PM.IMPN ---
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 Physical Exam Vital Signs: Vital Signs: Last Vital Signs Temp 98.6 F 08/07/21 07:48 Pulse 93 08/07/21 07:48 Resp 14 08/07/21 23:42 BP 163/77 H 08/07/21 07:48 Pulse Ox 96 08/07/21 07:48 BMI result Body Mass Index 30.2 Somnolent Objective Data Active Medications Acetaminophen (Acetaminophen Supp 650 Mg Supp.Rect) [address] Q6H PRN PRN Reason: Pain, Mild (Pain Scale 1-3) Labetalol HCl (Labetalol Hcl 100 Mg/20 Ml Vial) 10 mg IVPUSH Q4H PRN PRN Reason: BP > 220/120 Lorazepam (Lorazepam 2 Mg/Ml Vial) 1 mg IVPUSH Q4H PRN PRN Reason: anxiety Last Admin: 08/08/21 08:20 Dose: 1 mg Documented by: RAYMON Morphine Sulfate (Morphine Sulfate 2 Mg/Ml Cartridge) 2 mg IVPUSH Q1H PRN PRN Reason: Discomfort/Shortness of breath Last Admin: 08/08/21 08:12 Dose: 2 mg Documented by: RAYMON Ondansetron HCl (Ondansetron Hcl 4 Mg/2 Ml Vial) 4 mg IVPUSH Q8H PRN PRN Reason: Nausea and Vomiting Ondansetron HCl (Ondansetron Hcl 4 Mg/2 Ml Vial) 4 mg IVPUSH Q8H PRN PRN Reason: Nausea and Vomiting Scopolamine (Scopolamine 1.5 Mg Patch.Td.3) 1.5 mg TRANSDERMA Q72H [facility] Last Admin: 08/06/21 11:44 Dose: 1.5 mg Documented by: DAMI Sodium Chloride (0.9 % Sodium Chloride Flush 3 Ml Syringe) [facility] Last Admin: 08/08/21 08:17 Dose: 3 ml Documented by: RAYMON Labs CBC & Chem 7: 08/05/21 08:27 08/05/21 08:27 Microbiology Microbiology Results: Microbiology 08/05/21 08:50 Blood Culture - Preliminary Blood - Venous No growth after 48 hours. 08/05/21 08:27 Blood Culture - Preliminary Blood - Venous No growth after 48 hours. 08/05/21 Unknown Urine Culture - Final Urine Catheterized - Straight Catheter Escherichia coli Assessment and Plan (1) Cerebrovascular accident: Status: Acute Plan This is an 81 yo F with a PMH of DM, HTN, HLD, Hypothyroidism, Crohn's disease, Prior CVA x 2 who presents to the ED BIBA after her family found her on the ground on the day of admission. Her work up and presentation are consistent with acute/subacute CVA. She will be admitted for further work up. 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 No change in condition Due to the seriousness of the patient's diagnosis and poor prognosis her family decided to make her comfort measures only therefore all noninvasive and invasive treatments will be stopped. As needed morphine, lorazepam and Zofran are available along with scopolamine. The patient is resting in bed, somnolent surrounded by her family. Increase morphine frequency Acute vs Subacute CVA L MCA territory infarct seen on CT imaging rectal asa speech / swallow, PT/OT NPO for now neurology consult Elevated Trop-I in the NSTEMI range but flat Echo done -- no RMWA cardiology consult Possible UTI UA+ + low grade temp cover with IV rocephin HypoNa due to decreased oral intake treat with D5-1/2 @ 80 cc/hr monitor chemistry DM hold metformin POC, hold off on insulin coverage unless significantly elevated hypothyroidism synthorid when able, otherwise may need to use IV HTN allow for permissive HTN treat with IV labetalol for BP > 220/120 Seiuzre disorder use IV keppra, change to PO when able Chronic Crohn's monitor Thrombocytopenia no prior values to compare to DNR/DNI -- discussed with his patients daughter in law as well as Erik Santiago (grand son and HCP @ [phone]) DVT pptx, likely subcut heparin (platelets low -- will d/w Neurology) Attending [facility] consult pending Quality Stroke Does the patient have a stroke diagnosis?: Yes Reason for No Anti-thrombotic by Day Two: Drug treatment not indicated VTE Prior VTE?: No VTE Risk Level:: Medical - moderate - high VTE Device Contraindication: N/A - Device Ordered VTE Drug Contraindication: N/A - Med Ordered
--- NOTE | 2021-08-08 10:38 | MHC.STROKE ---
1020 I MET WITH THE DIL THIS MORNING, SHE WAS REQUESTING A MORPHINE DRIP, I DID RELAY THIS INFORMATION TO THE COMPUTER FIELD TECHNICIAN. WE DISCUSSED THE PATIENT'S PROGNOSIS AND I PROVIDED SUPPORT. THE PATIENT IS LETHARGIC. I WILL CONTINUE TO FOLLOW.
[2021-08-08] MEDS: Morphine Sulfate/NS 100 MG/100 ML PLAST..BAG IVCONT (12:21)
--- NOTE | 2021-08-08 12:50 | MHC.SLORD ---
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 DUAL RATE SUPERVISOR spoke with RN on unit this morning. Per RN, DUAL RATE SUPERVISOR consult is no longer indicated. D/C ST services at this time. Please re-refer if DUAL RATE SUPERVISOR can be of further assistance.
--- NOTE | 2021-08-08 13:03 | MHC.CM.PN ---
nurs career services manager note electronic medical record reviewed pineda with case discussed with [facility] patient . met with patients dtr/aerial photographer [facility] requested that i make a hospice referral for information meeting . i reviewed this with patients daughter eric beltrán [phone] she will notify her moms hcp nephew liat carver lives in [place] [phone] liason from [facility] called and said [facility] and reaxh out to nephew /hcp and dtr this after noon discharge plan hospice meeting today daughter reported that patient would not be able to be discharged home with hospice and would have to go to a faciliey under hospice and family self pay for room nd board she would [place] [facility] [place] . pain issue is opresntly be closely monitored
--- NOTE | 2021-08-08 16:26 | PC.NURSE ---
CERTIFICATION OFFICER pump started on patient at`1215 at 2mg per hour. Patient appears to have adequate pain relief. RR decreased to 16 and patient resting with eyes closed. Family at bedside.
[2021-08-09] VITALS (11 sets, daily range): RESP 14–16
[2021-08-09] MEDS: 0.9 % Sodium Chloride Flush 3 ML SYRINGE IVFLUSH (00:29)
--- NOTE | 2021-08-09 06:44 | PC.NURSE ---
PATIENT RESTED IN BED WITH NO S/SX ACUTE RESP DISTRESS. REPOSITIONED AND SKIN CARE PROVIDED. ABRASIONS NOTED TO RIGHT OUTER HIP, LOWER BACK, SHOULDER, ABDOMEN, AND FOAM DSGS X2 TO BILAT BUTTOCKS. HOB UP, O2 AT 2L/M N/C MORPHINE PUMP INFUSING AT 2MG/HR FOR COMFORT. DAUGHTER IN LAW AT BEDSIDE OVERNIGHT. RN HOSPITAL PT MONITORED FREQUENTLY., NO S/SX PAIN OR DISCOMFORTS. MINIMAL URINE OUTPUT NOTED.
[2021-08-09] MEDS: Scopolamine 1.5 MG PATCH.TD.3 TRANSDERMA (10:33)
[2021-08-09] MEDS: LORazepam 2 MG/ML VIAL 1 MG IVPUSH (10:33)
--- NOTE | 2021-08-09 11:32 | P.PNIM_ITS ---
Subjective Subjective Date of Service: 08/09/21 Review of Systems Follow up Stroke Family decided to change code status to WRAPPING MACHINE HELPER Physical Exam Vital Signs: Vital Signs: Last Vital Signs Temp 98.6 F 08/07/21 07:48 Pulse 93 08/07/21 07:48 Resp 14 08/09/21 07:49 BP 163/77 H 08/07/21 07:48 Pulse Ox 96 08/07/21 07:48 BMI result Body Mass Index 30.2 Somnolent Objective Data Active Medications Acetaminophen (Acetaminophen Supp 650 Mg Supp.Rect) 650 mg [place] Q6H PRN PRN Reason: Pain, Mild (Pain Scale 1-3) Morphine Sulfate () 100 mg in 100 mls @ 0 mls/hr IVCONT .Q0M [facility]; Protocol Last Infusion: 08/09/21 07:49 Dose: 2.2 mg/hr, 2.2 mls/hr Documented by: RAYMON Labetalol HCl (Labetalol Hcl 100 Mg/20 Ml Vial) 10 mg IVPUSH Q4H PRN PRN Reason: BP > 220/120 Lorazepam (Lorazepam 2 Mg/Ml Vial) 1 mg IVPUSH Q4H PRN PRN Reason: anxiety Last Admin: 08/09/21 10:33 Dose: 1 mg Documented by: RAYMON Ondansetron HCl (Ondansetron Hcl 4 Mg/2 Ml Vial) 4 mg IVPUSH Q8H PRN PRN Reason: Nausea and Vomiting Scopolamine (Scopolamine 1.5 Mg Patch.Td.3) 1.5 mg TRANSDERMA Q72H [facility] Last Admin: 08/09/21 10:33 Dose: 1.5 mg Documented by: RAYMON Sodium Chloride (0.9 % Sodium Chloride Flush 3 Ml Syringe) 3 ml IVFLUSH QSHIFT [facility] Last Admin: 08/09/21 07:52 Dose: Not Given Documented by: RAYMON Non-Admin Reason: IV Running Labs CBC & Chem 7: 08/05/21 08:27 08/05/21 08:27 Assessment and Plan (1) Cerebrovascular accident: Status: Acute Plan This is an 81 yo F with a PMH of DM, HTN, HLD, Hypothyroidism, Crohn's disease, Prior CVA x 2 who presents to the ED BIBA after her family found her on the ground on the day of admission. Her work up and presentation are consistent with acute/subacute CVA. She will be admitted for further work up. 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 No change in condition Due to the seriousness of the patient's diagnosis and poor prognosis her family decided to make her comfort measures only therefore all noninvasive and invasive treatments will be stopped. As needed morphine, lorazepam and Zofran are available along with scopolamine. The patient is resting in bed, somnolent surrounded by her family. Increase morphine frequency Acute vs Subacute CVA L MCA territory infarct seen on CT imaging rectal asa speech / swallow, PT/OT NPO for now neurology consult Elevated Trop-I in the NSTEMI range but flat Echo done -- no RMWA cardiology consult Possible UTI UA+ + low grade temp cover with IV rocephin HypoNa due to decreased oral intake treat with D5-1/2 @ 80 cc/hr monitor chemistry DM hold metformin POC, hold off on insulin coverage unless significantly elevated hypothyroidism synthorid when able, otherwise may need to use IV HTN allow for permissive HTN treat with IV labetalol for BP > 220/120 Seiuzre disorder use IV keppra, change to PO when able Chronic Crohn's monitor Thrombocytopenia no prior values to compare to DNR/DNI -- discussed with his patients daughter in law as well as Erik Santiago (grand son and HCP @ [phone]) DVT pptx, likely subcut heparin (platelets low -- will d/w Neurology) Attending Hospice consult pending Quality Stroke Does the patient have a stroke diagnosis?: Yes Reason for No Anti-thrombotic by Day Two: Drug treatment not indicated VTE Prior VTE?: No VTE Risk Level:: Medical - moderate - high VTE Device Contraindication: N/A - Device Ordered VTE Drug Contraindication: N/A - Med Ordered
--- NOTE | 2021-08-09 14:51 | MHC.CM.PN ---
NURSE PRECISION THREAD GRINDER OPERATORMEDICAL BILLING SPECIALIST MEDICAL RECORD REVIEWED - PATIENT IS ON COMFORT MEASURES ONLY, (1) Cerebrovascular accident: ASNEEDED MORPHINE, LORAZEPAM, ZOFRn and scopolamine Plan This is an 81 yo F with a PMH of DM, HTN, HLD, Hypothyroidism, Crohn's disease, Prior CVA x 2 who presents to the ED BIBA after her family found her on the ground on the day of admission. Her work up and presentation are consistent with acute/subacute CVA. She will be admitted for further work up. morphine has been increased . p[atient is somulent and family is at bedside case sealer to continue to follow
--- NOTE | 2021-08-09 15:27 | PC.NURSE ---
Called into patient's room by oncoming RN stating that family thinks the patient has passed. Found patient with no spontaneous respirations, no pulse, pulido in color. Notified Miya Melton WOVEN WOOD SHADE ASSEMBLER to pronounce patient. Notified organ bank but patient was declined. Family would like patient transported to [facility] in [place].
--- NOTE | 2021-08-09 15:28 | MHC.CM.PN ---
nurse supportive employment case manager note informed that patient has today
--- NOTE | 2021-08-09 16:36 | PM.DDS ---
Discharge Sum: Prov Provider Primary care physician: Jerica Miller MD Admitting clinician: Pérez Bernal Consults: 08/05/21 09:00 Consult to Cardiology Stat Consulting Provider: Vlad Smith Reason for consultation: elevated troponin Has provider been notified: Yes 08/05/21 11:48 Consult to Neurology Routine Consulting Provider: Dakotah Smith Reason for consultation: stroke 08/05/21 11:53 Consult to Cardiology Routine Consulting Provider: Vlad Smith Reason for consultation: elevated trop, acute stroke Discharge Sum: Diag PCOD Cause of : Respiratory failure Contributing Factors (1) Cerebrovascular accident: (2) Non-ST elevation (NSTEMI) myocardial infarction: Discharge Sum: Summary Date and Time Date of admission: 08/05/21 11:46 Date of : 08/09/21 Time of : 15:16 Summary Details: HP as per admitting provider This is an 81 yo F with a PMH of DM, HTN, HLD, Hypothyroidism, Crohn's disease, Prior CVA x 2 who presents to the ED BIBA after her family found her on the ground on the day of admission. The patient currently is unable to provide a history due to her acute CVA, hence history is obtained from the patients [id number] (Meg) who is bedside. Meg reports that she saw her mother in law on Sunday at which point she was in her usual state of health. This AM when she arrival to check in on her (patient lives by herself) she was found to be on the ground. She noted a facial droop at that time and subsequently paramedics were called. Upon arrival to the ED, the patients work up showed a CT scan a L MCA territory infarct of indeterminate chronicity.? Last well known time is unclear and hence not a candidate for tPA. Additionally -- the patient was noted to have elevated HS trop-I, a low grade temp and a UA concerning for UTI. She has been given a dose of IVF, IV ceftriaxone, OR tylenol and OR aspirin. She will now be admitted for further work up. In regards to the patients basline functional status -- she ambulates on her own and is capable of some ADLs. She does have some weakness from a prior CVA and a R facial droop. Furthermore, she has begun showing signs of cognitive impairment over the last several months . 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 No change in condition Due to the seriousness of the patient's diagnosis and poor prognosis her family decided to make her comfort measures only therefore all noninvasive and invasive treatments will be stopped.? As needed morphine, lorazepam and Zofran are available along with scopolamine.patient remained fairly comfortable with as needed morphine every hour transition to morphine drip. The patient peacefully with her family by her side. Acute vs Subacute CVA L MCA territory infarct seen on CT imaging rectal asa speech / swallow, PT/OT NPO for now neurology consult Elevated Trop-I in the NSTEMI range but flat Echo done -- no RMWA cardiology consult Possible UTI UA+ + low grade temp covered with IV rocephin HypoNa due to decreased oral intake treat with D5-1/2 @ 80 cc/hr monitor chemistry DM POC, hold off on insulin coverage unless significantly elevated hypothyroidism synthorid when able, otherwise may need to use IV HTN allow for permissive HTN Seiuzre disorder use IV keppra, change to PO when able Chronic Crohn's monitor Thrombocytopenia no prior values to compare to Additional Data Attending physician: Miya Melton, KRYSTAL
--- NOTE | 2021-08-09 16:46 | PM.EVENT ---
Event Note Date of Service: 08/09/21 Event Note: ID bracelet checked and patient confirmed. No response to tactile stimuli. No heart sounds or respiratory movement noted over one minute of auscultation, palpation or visualization. Pupils fixed with no response to light. Time pronounced to be 1516
--- NOTE | 2021-08-09 17:19 | PC.NURSE ---
patient transported to [facility] [place],post mortem care done by YOANA Barrera
== END 2021-08-09 16:22 | disposition expired | DRG 64 ==
LOC: HO.ED 10:55 → HO.EDOVER 12:06 → HO.S3 18:52
PROVIDERS: Admitting Provider Family Medicine; Emergency Provider Emergency Medicine; PCP Internal Medicine; Visit Provider Nurse Practitioner Acute Care
DX: I63.512 Cerebral infarction due to unspecified occlusion or stenosis of left middle cerebral artery (principal); I21.4 Non-ST elevation (NSTEMI) myocardial infarction; N39.0 Urinary tract infection, site not specified; M62.82 Rhabdomyolysis; E87.1 Hypo-osmolality and hyponatremia; K50.90 Crohn's disease, unspecified, without complications; R29.810 Facial weakness; E03.9 Hypothyroidism, unspecified; E11.9 Type 2 diabetes mellitus without complications; G40.909 Epilepsy, unspecified, not intractable, without status epilepticus; E78.5 Hyperlipidemia, unspecified; I10 Essential (primary) hypertension; D69.6 Thrombocytopenia, unspecified; I35.0 Nonrheumatic aortic (valve) stenosis; R47.01 Aphasia; R29.716 NIHSS score 16; R06.82 Tachypnea, not elsewhere classified; B96.20 Unspecified Escherichia coli [E. coli] as the cause of diseases classified elsewhere; Z66 Do not resuscitate; Z51.5 Encounter for palliative care; Z20.822 Contact with and (suspected) exposure to COVID-19; Z79.82 Long term (current) use of aspirin; Z79.84 Long term (current) use of oral hypoglycemic drugs; Z79.890 Hormone replacement therapy; Z79.899 Other long term (current) drug therapy
CPT/HCPCS: 36415; 70450; 71045; 72170; 80048; 80061; 81001; 82550; 82947; 83605; 84484; 85025; 85610; 85730; 87040; 87086; 87088; 87186; 87635; 93005; 93306; 96361; 96374; 99285; J0696; J1953; J2060; J2270